=== PATIENT | female | born 1995 | race Caucasian/White ===

== ENCOUNTER → 2016-08-02 | Outpatient (CLI) | payer OTHER ==
--- NOTE | 2016-08-02 12:34 | REP ---
Obstetric sonography: History: Supervision of . Findings: Scanning through the gravid uterus demonstrates a viable single intrauterine gestation in a free-floating lie. The embryonic pole measures 24 mm in crown-rump length. This corresponds to a gestational age estimate of 9 weeks 0 days. heart rate is recorded at 173 beats per minute. There is no evidence of subchorionic hemorrhage. No extrauterine abnormalities observed. No gross anomaly is seen. Impression: Viable single intrauterine gestation at 9 weeks 0 days by crown-rump length. NERI by sonography March 07, 2017. No complication is identified. Signed by Scar Valles MD 08/02/2016 12:26 P
== END ==
LOC: M RAD 11:04
PROVIDERS: ATTEND Nurse Practitioner Family
DX: Z32.01 Encounter for pregnancy test, result positive (principal)

== ENCOUNTER 2019-01-17 16:14 | Inpatient (IN) | payer OTHER ==
[~2019-01-17] VITALS: Ht 177.8 cm; Wt 72.3 kg
[2019-01-17] MEDS ORDERED: TRI-TAB16 PO (16:24)
[2019-01-17] MEDS ORDERED: SERT-141 PO ×2 (16:24)
[2019-01-17] MEDS ORDERED: NS 1,000 ML IV ONE ×2 (16:30→17:45)
[2019-01-17] MEDS ORDERED: ONDANSETRON 4MG/2ML VIAL (J2405) IV ONE (16:45)
[2019-01-17 17:18] LABS: BASO # 0.2 10^3/uL (0.0-0.2); BASO % 0.8 % (0.0-1.0); HEMATOCRIT 42.8 % (36.0-47.0); HEMOGLOBIN 14.8 g/dl (12.0-15.5); LYMPH # 1.4 10^3/uL (1.5-6.5); LYMPH % 7.5 % (24.0-44.0); MEAN CORPUSCULAR HEMOGLOBIN 34.2 pg (27.0-33.0); MEAN CORPUSCULAR HGB CONC 34.6 g/dl (32.0-36.5); MEAN CORPUSCULAR VOLUME 98.8 fl (80.0-96.0); MONO # 1.8 10^3/uL (0.0-0.8); MONO % 9.7 % (0.0-5.0); NEUTROPHILS # 14.3 10^3/uL (1.8-7.7); NEUTROPHILS % 79.4 % (36.0-66.0); PLATELET COUNT, AUTOMATED 353 10^3/uL (150-450); RED BLOOD COUNT 4.33 10^6/uL (4.00-5.40)
[2019-01-17 17:21] LABS: VENOUS BASE EXCESS -29.7 (-2.0-2.0); VENOUS HCO3 3.6 MEQ/L (23.0-27.0); VENOUS O2 SATURATION 82.3 % (60.0-80.0); VENOUS PARTIAL PRESSURE CO2 21.6 mmHg (38.0-50.0); VENOUS PARTIAL PRESSURE O2 47.8 mmHg (30.0-50.0); VENOUS PH 6.839 UNITS (7.330-7.430); VENOUS STANDARD HCO3 5.5 MEQ/L; VENOUS TOTAL CO2 4.3 MEQ/L (24.0-28.0)
[2019-01-17] MEDS ORDERED: INSULIN HUMAN REGULAR 100 UNITS in NS 99 ML IV SCH (17:38)
[2019-01-17 17:42] LABS: BILIRUBIN,DIRECT 0.1 MG/DL (0.0-0.2); BILIRUBIN,TOTAL 0.4 MG/DL (0.2-1.0); MAGNESIUM LEVEL 2.3 MG/DL (1.8-2.4); TOTAL PROTEIN 7.8 GM/DL (6.4-8.2)
[2019-01-17] MEDS ORDERED: diphenhydrAMINE INJ 50MG/ML VIAL (J1200) IV ONE ×2 (17:45→19:30)
[2019-01-17] MEDS ORDERED: KCL 40MEQ in NS 1000ML 1,000 ML IV SCH ×2 (17:45→20:45)
[2019-01-17] MEDS ORDERED: INSULIN IV RATE CHANGE DOCUMENTATION ML/HR XX SCH (17:45)
[2019-01-17] MEDS ORDERED: KCL 10MEQ/100ML SWI (KRUN) 10 MEQ in APPROPRIATE DILUENT 1 EA IV ONE (17:45)
[2019-01-17] MEDS ORDERED: SODIUM BICARBONATE 8.4% INJ 50 ML SYRINGE IV STA (17:55)
[2019-01-17 17:57] LABS: HEMOGLOBIN A1c 12.3 %
[2019-01-17] MEDS ORDERED: POTASSIUM CHLORIDE 10 MEQ SR TABLET PO ONE ×2 (18:00→20:45)
[2019-01-17 18:59] LABS: VENOUS BASE EXCESS -27.8 (-2.0-2.0); VENOUS HCO3 3.3 MEQ/L (23.0-27.0); VENOUS O2 SATURATION 98.7 % (60.0-80.0); VENOUS PARTIAL PRESSURE CO2 16.1 mmHg (38.0-50.0); VENOUS PARTIAL PRESSURE O2 141.5 mmHg (30.0-50.0); VENOUS PH 6.931 UNITS (7.330-7.430); VENOUS STANDARD HCO3 6.2 MEQ/L; VENOUS TOTAL CO2 3.8 MEQ/L (24.0-28.0)
[2019-01-17 19:26] LABS: BLOOD UREA NITROGEN 5 MG/DL (7-18); CALCIUM LEVEL 6.9 MG/DL (8.5-10.1); CARBON DIOXIDE LEVEL 5 MEQ/L (21-32); CHLORIDE LEVEL 116 MEQ/L (98-107); CREATININE FOR GFR 0.82 MG/DL (0.55-1.30); GLOMERULAR FILTRATION RATE > 60.0 (>60); GLUCOSE, FASTING 418 MG/DL (70-100); SODIUM LEVEL 144 MEQ/L (136-145)
[2019-01-17] MEDS ORDERED: methylPREDNISolone INJ 125 MG/2 ML VIAL (J2930) IV ONE (19:30)
[2019-01-17] MEDS ORDERED: diphenhydrAMINE 25 MG CAP PO PRN ×2 (19:45→21:30)
[2019-01-17] MEDS ORDERED: NS 1,000 ML IV SCH (19:45)
[2019-01-17] MEDS ORDERED: SODIUM BICARBONATE 150 MEQ in STERILE WATER LITER BAG 1,000 ML IV SCH (20:00)
[2019-01-17] MEDS ORDERED: ACETAMINOPHEN TAB 650MG DOSE (2X325MG) PO PRN (20:00)
--- NOTE | 2019-01-17 20:08 | HPEPDOC ---
General Date of Admission 01/17/19 Date of Service: Jan 17, 2019 Chief Complaint The patient is a 23-year-old female admitted with a reason for visit of SOB. Source: Patient, Family Exam Limitations: No limitations Timing/Duration: Day(s) (today's) Severity: Severe Associated Symptoms: Nausea, Vomiting, Shortness of breath History of Present Illness 23 years old white female with past medical history of no medical problems and no past surgical history presented to the ED with a chief complaints of shortness of breath. Patient was started. Her symptoms of lethargy, tiredness, weakness, not feeling good since yesterday, which was followed by nausea and vomiting in the evening and subsequently increasing shortness of breath since today and decided to come to ER for further care. In ED, patient did receive a dose of Zofran Zofran and afterward she developed swelling of her tongue that and let which resolved with Benadryl. Patient does not give me any history of any other symptoms such as short adjust his cough, fever, dysuriu. On further interrogation, it was found that patient has been losing weight since last 2 for 5 months and also had increasing thirst and increased micturition since last few months. Patient is being admitted with the diagnosis of DKA to ICU. Home Medications Scheduled Norgestimate-Ethinyl Estradiol (Tri-Linyah Tablet) 1 Each Tablet, 1 TAB PO DAILY, (Reported) Sertraline Hcl (Sertraline HCl) 50 Mg Tablet, 50 MG PO DAILY, (Reported) Allergies Coded Allergies: ondansetron (Verified Allergy, Severe, 01/17/19) Tongue and lip swelling No Known Drug Allergies (Verified Allergy, Unknown, 01/17/19) Past Medical History Medical History There is no past medical history Surgical History There is no past surgical history Family History Significant Family History: Diabetes (grandmother has diabetes type 2) Social History * Smoker: non-smoker Alcohol: Denies Drugs: denies A-FIB/CHADSVASC A-FIB History Current/History of A-Fib/PAF?: No Review of Systems Constitutional: Reports: Other (, swelling of the left lip and left side of tongue) Eyes: Denies: Pain, Vision change, Conjunctivae inflammation, Eyelid inflammation, Redness, Other ENT: Denies: Head Aches, Ear Pain, Dysphagia, Sinus Congestion, Post Nasal Drip, Sore Throat, Epistaxis, Other Symptoms Skin: Denies: Rash, Lesions, Jaundice, Bruising, Itching, Dry, Breakdown, Nail Changes, Other Pulmonary: Reports: Dyspnea; Denies: Cough, Pleuritic Chest Pain, Other Symptoms Cardiovascular: Denies: Chest Pain, Palpitations, Orthopnea, Paroxysmal Noc. Dyspnea, Edema, Lt Headedness, Other Symptoms Gastrointestinal: Reports: Nausea, Vomiting Genitourinary: Reports: Other Symptoms (increased frequency) Hematologic: Denies: Bruising, Bleeding Excessively, Petecchia, Purpura, Enlarged Lymph Nodes, Other Hematologic Endocrine: Reports: Polydipsia, Polyuria Musculoskeletal: Denies: Neck Pain, Back Pain, Shoulder Pain, Arm Pain, Hand Pain, Leg Pain, Foot Pain, Joint Pain, Muscle Pain, Spasms, Other Symptoms Neurological: Denies: Weakness, Numbness, Incoordination, Change in speech, Confusion, Seizures, Other Symptoms Psych: Denies: Mood Normal, Anxiety, Depression, Memory Issues, Thoughts of Self Harm, Anger, Thoughts of Harming Other, Other Psych Physical Examination General Exam: Positive: Alert, Cooperative, Other (. Mild swelling of left lower lip and left side of tongue noted) Eye Exam: Positive: PERRLA, Conjunctiva & lids normal ENT Exam: Positive: Atraumatic, Mucous membr. moist/pink Neck Exam: Negative: Supple, JVD, thyromegaly, +2 carotid pulse wo bruit, Lymphadenopathy, Other Chest Exam: Positive: Clear to auscultation, Normal air movement Heart Exam: Positive: Tachycardic, Normal S1, Normal S2 Telemetry: Positive: Tachycardia Abdomen Exam: Positive: Normal bowel sounds, Soft, Tenderness Extremity Exam: Positive: Normal pulses Skin Exam: Positive: Other skin issue (dry, and increased local temperature) Neuro Exam: Positive: Normal Speech, Strength at 5/5 X4 ext, Sensation Intact Psych Exam: Positive: Oriented x 3 Vital Signs Vital Signs Date Time Temp Pulse Resp B/P (MAP) Pulse Ox O2 Delivery O2 Flow Rate FiO2 01/17/19 19:14 123 100 Room Air 01/17/19 18:30 148/83 (104) 01/17/19 16:15 97.4 34 Laboratory Data Labs 24H Laboratory Tests 2 01/17/19 16:29: Bedside Glucose (Misc Panel) 582*H 01/17/19 16:54: Estimated Mean Plasma Glucose 306H, Hemoglobin A1c 12.3 01/17/19 16:55: Immature Granulocyte % (Auto) 2.6, White Blood Count 18.0H, Red Blood Count 4.33, Hemoglobin 14.8, Hematocrit 42.8, Mean Corpuscular Volume 98.8H, Mean Corpuscular Hemoglobin 34.2H, Mean Corpuscular Hemoglobin Concent 34.6, Red Cell Distribution Width 14.2, Platelet Count 353, Neutrophils (%) (Auto) 79.4H, Lymphocytes (%) (Auto) 7.5L, Monocytes (%) (Auto) 9.7H, Eosinophils (%) (Auto) 0.0, Basophils (%) (Auto) 0.8, Neutrophils # (Auto) 14.3H, Lymphocytes # (Auto) 1.4L, Monocytes # (Auto) 1.8H, Eosinophils # (Auto) 0.0, Basophils # (Auto) 0.2, Nucleated Red Blood Cells % (auto) 0.0, Blood Gas Bicarbonate Standard 5.5, Venous Blood pH 6.839L, Venous Blood Partial Pressure CO2 21.6L, Venous Blood Partial Pressure O2 47.8, Venous Blood Total Carbon Dioxide 4.3L, Venous Blood HCO3 3.6L, Venous Blood Oxygen Saturation 82.3H, Venous Blood Base Excess - 29.7L, Magnesium Level 2.3, Aspartate Amino Transf (AST/SGOT) 7, Alanine Aminotransferase (ALT/SGPT) 16, Alkaline Phosphatase 191H, Total Bilirubin 0.4, Direct Bilirubin 0.1, Total Protein 7.8, Albumin 4.0, Albumin/Globulin Ratio 1.05 01/17/19 16:57: Urine Color STRAW, Urine Appearance CLEAR, Urine pH 5.0, Urine Specific Woodruff 1.022, Urine Protein 1+H, Urine Glucose (UA) 3+H, Urine Ketones 2+H, Urine Blood 2+H, Urine Nitrite NEGATIVE, Urine Bilirubin NEGATIVE, Urine Urobilinogen 0.2, Urine Leukocyte Esterase NEGATIVE, Urine WBC (Auto) 1, Urine RBC (Auto) 1, Urine Hyaline Casts (Auto) 0, Urine Bacteria (Auto) NEGATIVE, Urine Squamous Epithelial Cells 0, Urine Mucus (Auto) SMALL, Urine Sperm (Auto) 01/17/19 17:14: POC Glucose (Misc Panel) 642*H, POC Sodium (Misc Panel) 137, POC Potassium (Misc Panel) 3.1L, POC Chloride (Misc Panel) 109, POC Total CO2 (Misc Panel) 6.0L, POC Blood Urea Nitrogen (Misc Panel 4L, POC Ionized Calcium (Misc Panel) 5.0, POC Creatinine (Misc Panel) 0.5L, POC Hematocrit (Misc Panel) 45.0 01/17/19 18:42: Blood Gas Bicarbonate Standard 6.2, Venous Blood pH 6.931L, Venous Blood Partial Pressure CO2 16.1L, Venous Blood Partial Pressure O2 141.5H, Venous Blood Total Carbon Dioxide 3.8L, Venous Blood HCO3 3.3L, Venous Blood Oxygen Saturation 98.7H, Venous Blood Base Excess -27.8L, Anion Gap 23H, Glomerular Filtration Rate > 60.0, Blood Urea Nitrogen 5L, Creatinine 0.82, Sodium Level 144, Potassium Level 3.0L, Chloride Level 116H, Carbon Dioxide Level 5L, Calcium Level 6.9L CBC/BMP Laboratory Tests 01/17/19 16:55 Red Blood Count 4.33, Mean Corpuscular Volume 98.8 H, Mean Corpuscular Hemoglobin 34.2 H, Mean Corpuscular Hemoglobin Concent 34.6, Red Cell Distribution Width 14.2, Neutrophils (%) (Auto) 79.4 H, Lymphocytes (%) (Auto) 7.5 L, Monocytes (%) (Auto) 9.7 H, Eosinophils (%) (Auto) 0.0, Basophils (%) (Auto) 0.8, Neutrophils # (Auto) 14.3 H, Lymphocytes # (Auto) 1.4 L, Monocytes # (Auto) 1.8 H, Eosinophils # (Auto) 0.0, Basophils # (Auto) 0.2 01/17/19 18:42 Calcium Level 6.9 L Problems (1) DKA (diabetic ketoacidoses) Status: Acute Problem Text: 22 years old white female with no past medical history developed weight loss since last 4-5 months followed by polyuria, polydipsia, and later she developed nausea, vomiting since yesterday and found followed by shortness of breath. On further investigation, patient was found to be within metabolic acidosis with a widened anion gap high blood serum blood sugar and very low pH on arterial blood gas. Patient's respiratory rate is also more than 25 with tachycardia and high white count of 18,000. Patient is an DKA with metabolic acidosis and hypokalemia as well as she also qualifies for sepsis of unknown etiology. Patient most likely has new onset diabetes mellitus type 1, which was previously not diagnosed as hemoglobin A1c is more than 12 Admit patient to ICU for close monitoring Fingerstick blood sugar every one hour BMP and phosphate, and osmolality every 4-6 hours Pt will be started on IV fluid normal saline to 150 mL per hour and will change IV fluids was the blood sugar is less than 150 consistently Pt did receive a potassium supplement of 40 mEq in ED and will follow the repeat BMPs and adjust accordingly Patient will also be started on bicarbonate drip of 150 mEq and 1 L of sterile water to be run at 200 mL per hour 1 L, we will repeat blood gas was the bicarbonate drip is complete Insulin drip has been started and will be titrated according to protocol Will also start patient on IV Levaquin 750 mg IV piggyback every 24 hours after getting blood cultures and urine cultures secondary to sepsis of unknown etiology Regarding her swelling of tongue and lip which is has resolved, but there is some residual swelling on the lip and will most likely causes a Zofran and will call pharmacy to inform from them about the drug allergy. In the meantime, will prescribe patient on Reglan for nausea, vomiting as needed Protonix 40 mg IV piggyback every 24 hours for GI prophylaxis Bilateral SCDs for DVT prophylaxis Bed rest Diet nothing by mouth except meds (2) New onset type 1 diabetes mellitus, uncontrolled Status: Acute Problem Text: Elevated hemoglobin A1c, 12.3 Recently undiagnosed diabetes mellitus, most likely type I Once patient resolved her DKA episode that she can be placed on long-acting insulin and dose adjusted accordingly Dietary business and financial counsel has been requested (3) Hypokalemia Status: Acute Problem Text: Corrected . Potassium level in 4 hours (4) Metabolic acidosis Status: Acute Problem Text: Patient has been started on bicarbonate drip of 150 mEq, she also received sodium bicarbonate 100 mEq as a bolus in ED We will get the repeat ABG again to review the pH was a bicarbonate drip is complete (5) Sepsis Status: Acute Problem Text: Sepsis of unknown etiology. Patient has a elevated heart rate, elevated respiratory rate. No temperature but high WBC count and satisfies the Criteria of sepsis of unknown origin etiology. will order the pro calcitonin levels and lactic acid level now , Urine cultures and blood cultures also has been ordered To start patient on Levaquin 750 mg IV piggyback every 24 hours, first dose now Plan / VTE VTE Prophylaxis Ordered?: Yes MARCOS BRYSON MD Jan 17, 2019 20:08
[2019-01-17 21:19] VITALS: BP 135/72
[2019-01-17] MEDS ORDERED: SODIUM BICARBONATE IV SCH (21:30)
[2019-01-17] MEDS ORDERED: POTASSIUM CHLORIDE IV SCH (21:30)
[2019-01-17] MEDS ORDERED: POTASSIUM CHLORIDE INJ 40 MEQ in NS 0.45% 1,000 ML IV SCH (21:30)
[2019-01-17] MEDS ORDERED: [UNRECOGNIZED DRUG - OTHER] IV SCH (21:30)
[2019-01-17] MEDS: PANTOPRAZOLE 40MG INJ (PROTONIX) (C9113) IV SCH (21:32)
[2019-01-17] MEDS: KCL 10MEQ/100ML SWI (KRUN) 10 MEQ in APPROPRIATE DILUENT 1 EA IV SCH ×2 (21:33→22:50)
[2019-01-17 22:00] VITALS: BP 128/70
[2019-01-17] MEDS: CETIRIZINE (ZyrTEC) 10 MG TAB PO SCH (22:49)
[2019-01-17 23:00] VITALS: BP 116/65
--- NOTE | 2019-01-17 23:28 | CR ---
DATE OF CONSULTATION: 01/17/2019 CHIEF COMPLAINT: Angioedema and diabetic ketoacidosis (DKA). HISTORY OF PRESENT ILLNESS: Ms. Dunaway is a 23-year-old female with a history of depression who presented to the emergency department (ED) with complaints of weakness, shortness of breath, nausea and vomiting. The patient reports that her shortness of breath and nausea and vomiting started early in the day prior to her admission. Prior to this, she had noted some increasing weakness; however, for the past few weeks, as well increasing thirst and urination in the past few months. The patient also reports a weight loss of approximately 50 pounds in the past few months as well. In the emergency department (ED), she was given IV fluid hydration, as well as potassium 40 mg by mouth and 10 mEq IV and she was started on an insulin drip and also given sodium bicarbonate. The patient was also given Zofran for her nausea and she was also complaining of dry lips and had Vaseline jelly placed on her lips. Afterwards, she noticed swelling of her tongue and her lips, but denied any shortness of breath, no wheezing at that time. She was given Benadryl 25 mg with some improvement in the tongue swelling, but then later reported it appeared to have slightly increased. I ordered Solu-Medrol 60 mg IV and an additional 25 mg of Benadryl and after that she feels her tongue swelling has significantly improved. She currently denies any difficulty swallowing, no drooling, no voice change, no wheezing, no chest tightness or shortness of breath. She also reports her nausea has improved and her shortness of breath has improved. PAST MEDICAL/SURGICAL HISTORY: Depression/anxiety. There is no past surgical history. HOME MEDICATIONS: Sertraline, control pill. ALLERGIES: No previous drug allergies reported. Has allergies to cats and other environmental exposures, but denies a previous history of angioedema. FAMILY HISTORY: There is a history of type 2 diabetes in her grandmother. No family history of type 1 diabetes. No history of angioedema in the family and no history of any lung disease. SOCIAL HISTORY: The patient is a nonsmoker. Denies any alcohol use or drug use. PHYSICAL EXAM: Temperature 97.8, heart rate 116, respirations 24, blood pressure 141/83, oxygen saturation 100% on room air. General: The patient is a thin female who is lying in the stretcher in no acute distress. Appears slightly drowsy, but is awake and alert and responding to questions appropriate. She is not using any accessory muscles for respirations currently. HEENT: Normocephalic, atraumatic. Pupils are equal and reactive to light bilaterally. Neck is supple. There is no palpable adenopathy. There is no tenderness to palpation in her neck as well. Mucous membranes are moist. Her tongue does not appear significantly swollen. There does not appear to be swelling in her uvula. Her lips are swollen still more on the left side than the right. Cardiovascular: Tachycardic, regular rhythm. Normal S1-S2. No murmurs appreciated. Pulmonary: Clear to auscultation bilaterally. No wheezing, rales or rhonchi. Abdomen is soft, nondistended, nontender. Normal bowel sounds. Lower extremities: There is no lower extremity edema noted bilaterally. LABORATORY DATA: WBC 18.0, hemoglobin 14.8, platelets 353. Chemistry: Sodium is 144, potassium initially on the point of care chemistry was 3.1, repeat potassium 3.0 after repletion, chloride 169, bicarb of 5, BUN 5, creatinine 0.82, anion gap 23, glucose 418, magnesium was 2.3, AST, ALT within normal limits. Bilirubin normal, alkaline phosphatase 191, albumin is 4.0, hemoglobin A1c is 12.3 Venous blood gas (VBG) on admission pH 6.839, pCO2 of 21.6, pO2 of 47.8, repeat Venous blood gas (VBG) pH 6.931, pCO2 of 16.1, pO2 of 141.5. Urinalysis positive for ketones, blood and glucose and protein. Negative leukocyte esterase, negative nitrates and negative bacteria. Chest x-ray on admission showed no focal opacities or infiltrates. ASSESSMENT/PLAN: Ms. Dunaway is a 23-year-old female with a past medical history of depression/anxiety who presented with weakness, shortness of breath, nausea and vomiting. The patient was found to be in diabetic ketoacidosis (DKA), likely due to history of untreated type 1 diabetes. The patient had significant acidosis contributing to her shortness of breath. She was also noted to be significantly hypokalemic. During her emergency department (ED) stay, she also had complaints of nausea, was given Zofran and developed angioedema of her lips and her tongue. She was given Benadryl and Solu-Medrol with improvement in the angioedema. She does not have any evidence of airway obstruction at this time and there is also no evidence of anaphylaxis. 1. Diabetic ketoacidosis (DKA) likely in the setting of untreated type 1 diabetes. She did have increased leukocytosis, but is afebrile and her urinalysis is negative, chest x-ray is negative and she has no localizing symptoms to suggest an infectious etiology. - Would to monitor the patient off of antibiotics. The patient was on broad-spectrum antibiotics, although there is less likely a suspicion for any acute infectious etiology. However, leukocytosis is likely reactive. Would followup her repeat white blood count (WBC) and follow up the results of her blood cultures. Would check a procalcitonin to discontinue antibiotics and would recommend to monitor off of antibiotics. - In terms of her diabetic ketoacidosis (DKA), the patient was on insulin drip in the emergency department (ED); however, her potassium repeat was 3.0. Therefore, would hold the insulin drip until her potassium has been repleted and the potassium is above 3.3. Therefore, will give her 40 mEq by mouth potassium, as well as 10 mEq IV x3. Will also change her fluids from normal saline to half normal saline with 40 mEq of potassium running at 250 mL an hour. Will follow up a repeat potassium after she receives the repletion; and if the potassium is of above 3.3, can restart the insulin drip at that time. - In terms of her acidosis, the patient's last the venous blood gas (VBG) shows a pH still of 6.9. The patient was receiving 150 mEq of sodium bicarbonate, as well as normal saline and she was also becoming hyperchloremic on her chemistry, which would be contributing to her acidosis. Therefore, her fluids have been adjusted and will discontinue the bicarbonate drip and instead give her bicarbonate repletion with 100meq sodium bicarb with potassium chloride over 2 hours. Will follow up a repeat venous blood gas (VBG); and if her pH is still less than 7, will give her another run of sodium bicarb. - The patient's insulin drip is on hold now given her hypokalemia; but once her potassium has been repleted to above 3.3, would restart her insulin drip and continue until her anion gap has closed x2 and her bicarb is above 15. She will need fingerstick glucose every one hour while on the insulin drip. - if her FSG is less than 200 would change fluids to D5W or D5 1/2NS depending on her sodium. - She will also need chemistries every 4 hours, as well as monitoring her venous blood gases (VBGs) - Will monitor her electrolytes and replete as needed. - When the patient is ready for to be transitioned to subcutaneous insulin after her anion gap has remained closed on two subsequent chemistries and she is able to tolerate by mouth, she will need overlap of the insulin drip after receiving this long-acting insulin subcutaneous for 2 hours before stopping the drip. 2. Angioedema likely an allergic reaction secondary to Zofran. She did also have Vaseline jelly placed on her lips, but she had previously used Vaseline jelly in the past without any ill effects. - The patient is status post Benadryl 25 mg x2 and Solu-Medrol 60 mg IV. - Will continue with an antihistamine with cetirizine 10 mg twice a day. - Continue with steroids with prednisone 40 mg daily - The patient does not have any evidence of airway compromise currently or anaphylaxis. If she has worsening angioedema or signs to suggest anaphylaxis, would give epinephrine intramuscular (IM) at that time. - would continue to monitor the patient closely for any signs of respiratory distress or airway compromise. She does not have any family history of angioedema and no prior history of hives or tongue or lip swelling to suggest a hereditary deficiency. 3. Deep vein thrombosis (DVT) prophylaxis. 4. Gastrointestinal (GI) prophylaxis. 5. Full code. Total critical care time spent not including any procedures approximately 1 hour and 20 minutes. MTDD
[2019-01-18] VITALS (15 sets, daily range): BP systolic 96–129; BP diastolic 53–76
[2019-01-18 00:06] LABS: BLOOD UREA NITROGEN 5 MG/DL (7-18); CALCIUM LEVEL 7.8 MG/DL (8.5-10.1); CARBON DIOXIDE LEVEL 6 MEQ/L (21-32); CHLORIDE LEVEL 123 MEQ/L (98-107); CREATININE FOR GFR 0.79 MG/DL (0.55-1.30); GLOMERULAR FILTRATION RATE > 60.0 (>60); GLUCOSE, FASTING 220 MG/DL (70-100); MAGNESIUM LEVEL 1.9 MG/DL (1.8-2.4); PHOSPHORUS LEVEL 0.5 MG/DL (2.5-4.9); POTASSIUM SERUM 3.4 MEQ/L (3.5-5.1); SODIUM LEVEL 148 MEQ/L (136-145)
[2019-01-18] MEDS: KCL 10MEQ/100ML SWI (KRUN) 10 MEQ in APPROPRIATE DILUENT 1 EA IV SCH ×3 (00:17→04:11)
[2019-01-18] MEDS: LevoFLOXacin IV 750 MG in APPROPRIATE DILUENT 1 EA IV SCH ×2 (00:56→20:44)
[2019-01-18] MEDS: INSULIN HUMAN REGULAR 100 UNITS in NS 99 ML IV SCH ×2 (01:07→15:20)
[2019-01-18 01:45] LABS: VENOUS BASE EXCESS -25.9 (-2.0-2.0); VENOUS HCO3 3.5 MEQ/L (23.0-27.0); VENOUS O2 SATURATION 87.1 % (60.0-80.0); VENOUS PARTIAL PRESSURE CO2 14.2 mmHg (38.0-50.0); VENOUS PARTIAL PRESSURE O2 47.9 mmHg (30.0-50.0); VENOUS PH 7.008 UNITS (7.330-7.430); VENOUS STANDARD HCO3 6.9 MEQ/L; VENOUS TOTAL CO2 3.9 MEQ/L (24.0-28.0)
[2019-01-18] MEDS: INSULIN IV RATE CHANGE DOCUMENTATION ML/HR XX SCH ×12 (02:08→23:22)
[2019-01-18 05:41] LABS: VENOUS BASE EXCESS -19.1 (-2.0-2.0); VENOUS HCO3 6.9 MEQ/L (23.0-27.0); VENOUS O2 SATURATION 99.1 % (60.0-80.0); VENOUS PARTIAL PRESSURE CO2 18.7 mmHg (38.0-50.0); VENOUS PARTIAL PRESSURE O2 193.5 mmHg (30.0-50.0); VENOUS PH 7.188 UNITS (7.330-7.430); VENOUS STANDARD HCO3 10.6 MEQ/L; VENOUS TOTAL CO2 7.5 MEQ/L (24.0-28.0)
[2019-01-18 06:01] LABS: OSMOLALITY SERUM 308 MOSM/KG (275-295)
[2019-01-18 06:06] LABS: BLOOD UREA NITROGEN 5 MG/DL (7-18); CALCIUM LEVEL 8.4 MG/DL (8.5-10.1); CARBON DIOXIDE LEVEL 9 MEQ/L (21-32); CHLORIDE LEVEL 128 MEQ/L (98-107); CREATININE FOR GFR 0.74 MG/DL (0.55-1.30); GLOMERULAR FILTRATION RATE > 60.0 (>60); GLUCOSE, FASTING 145 MG/DL (70-100); MAGNESIUM LEVEL 2.1 MG/DL (1.8-2.4); PHOSPHORUS LEVEL 0.2 MG/DL (2.5-4.9); POTASSIUM SERUM 2.8 MEQ/L (3.5-5.1); SODIUM LEVEL 151 MEQ/L (136-145)
[2019-01-18] MEDS ORDERED: POTASSIUM CHLORIDE 10 MEQ SR TABLET PO ONE ×2 (06:30→14:15)
[2019-01-18] MEDS ORDERED: KCL 40MEQ IN D5/0.45NS 1000ML 1,000 ML IV SCH (06:30)
[2019-01-18] MEDS ORDERED: POTASSIUM PHOSPHATE INJ 30 MMOL in D5W 500 ML IV ONE ×2 (07:00→22:00)
[2019-01-18 09:24] LABS: BASO # 0.1 10^3/uL (0.0-0.2); BASO % 0.4 % (0.0-1.0); LYMPH % 12.4 % (24.0-44.0); MEAN CORPUSCULAR HEMOGLOBIN 33.2 pg (27.0-33.0); MEAN CORPUSCULAR HGB CONC 35.3 g/dl (32.0-36.5); MONO % 17.9 % (0.0-5.0); NEUTROPHILS # 10.6 10^3/uL (1.8-7.7); NEUTROPHILS % 67.6 % (36.0-66.0); PLATELET COUNT, AUTOMATED 264 10^3/uL (150-450); RED BLOOD COUNT 3.83 10^6/uL (4.00-5.40); WHITE BLOOD COUNT 15.7 10^3/uL (4.0-10.0)
[2019-01-18 09:30] LABS: BLOOD UREA NITROGEN 6 MG/DL (7-18); CALCIUM LEVEL 8.7 MG/DL (8.5-10.1); CARBON DIOXIDE LEVEL 5 MEQ/L (21-32); CHLORIDE LEVEL 124 MEQ/L (98-107); CREATININE FOR GFR 0.84 MG/DL (0.55-1.30); GLOMERULAR FILTRATION RATE > 60.0 (>60); GLUCOSE, FASTING 230 MG/DL (70-100); PHOSPHORUS LEVEL 0.7 MG/DL (2.5-4.9); POTASSIUM SERUM 3.4 MEQ/L (3.5-5.1); SODIUM LEVEL 147 MEQ/L (136-145)
[2019-01-18 09:48] LABS: MONO # 2.8 10^3/uL (0.0-0.8)
[2019-01-18 09:49] LABS: HEMOGLOBIN 12.7 g/dl (12.0-15.5)
[2019-01-18] MEDS ORDERED: D5W 1,000 ML IV SCH ×2 (10:00→14:16)
[2019-01-18] MEDS: CETIRIZINE (ZyrTEC) 10 MG TAB PO SCH ×2 (10:04→20:08)
[2019-01-18] MEDS: predniSONE 20 MG TAB PO SCH (10:05)
[2019-01-18 11:46] LABS: ACETONE/KETONE 37.62 MG/DL (<2.81)
[2019-01-18] MEDS ORDERED: KCL 20MEQ IN D5W 1000ML 1,000 ML IV SCH (12:00)
[2019-01-18 13:03] LABS: HEMATOCRIT 33.2 % (36.0-47.0); HEMOGLOBIN 11.9 g/dl (12.0-15.5); MEAN CORPUSCULAR HEMOGLOBIN 33.8 pg (27.0-33.0); MEAN CORPUSCULAR HGB CONC 35.8 g/dl (32.0-36.5); MEAN CORPUSCULAR VOLUME 94.3 fl (80.0-96.0); PLATELET COUNT, AUTOMATED 223 10^3/uL (150-450); RED BLOOD COUNT 3.52 10^6/uL (4.00-5.40); WHITE BLOOD COUNT 13.3 10^3/uL (4.0-10.0)
[2019-01-18 13:24] LABS: BLOOD UREA NITROGEN 5 MG/DL (7-18); CARBON DIOXIDE LEVEL 8 MEQ/L (21-32); CHLORIDE LEVEL 121 MEQ/L (98-107); CREATININE FOR GFR 0.79 MG/DL (0.55-1.30); GLOMERULAR FILTRATION RATE > 60.0 (>60); GLUCOSE, FASTING 227 MG/DL (70-100); MAGNESIUM LEVEL 1.9 MG/DL (1.8-2.4); PHOSPHORUS LEVEL 0.5 MG/DL (2.5-4.9); SODIUM LEVEL 144 MEQ/L (136-145)
[2019-01-18] MEDS ORDERED: MAG SULF 1GM/100ML (MAG RUN) 1 GM in APPROPRIATE DILUENT 1 EA IV ONE ×2 (14:00→22:00)
[2019-01-18] MEDS: POTASSIUM CHLORIDE 10 MEQ SR TABLET PO SCH ×2 (14:04→15:20)
[2019-01-18] MEDS ORDERED: SODIUM BICARBONATE 150 MEQ in D5W 1,000 ML IV SCH (14:15)
--- NOTE | 2019-01-18 14:28 | IPNPDOC ---
Date Seen The patient was seen on 01/18/19. Progress Note SUBJECTIVE: Pt c/o fatigue, generalized weakness, but denies abdominal pain, vomiting. pt had nausea given zofran and subsequently developed angioedema s/p prednisone and benadryl. pt requesting liquids and feeling very thirsty. At home, she admits to weight loss, but denied polyuria polydipsia. OBJECTIVE: Physical Examination General Exam: Positive: Alert, Cooperative, Other (. Mild swelling of left lower lip and left side of tongue noted) Eye Exam: Positive: PERRLA, Conjunctiva & lids normal ENT Exam: Positive: Atraumatic, Mucous membr. moist/pink Neck Exam: Negative: Supple, JVD, thyromegaly, +2 carotid pulse wo bruit, Lymphadenopathy, Other Chest Exam: Positive: Clear to auscultation, Normal air movement Heart Exam: Positive: Tachycardic, Normal S1, Normal S2 Telemetry: Positive: Tachycardia Abdomen Exam: Positive: Normal bowel sounds, Soft, Tenderness Extremity Exam: Positive: Normal pulses Skin Exam: Positive: Other skin issue (dry, and increased local temperature) Neuro Exam: Positive: Normal Speech, Strength at 5/5 X4 ext, Sensation Intact Psych Exam: Positive: Oriented x 3 ADMISSION LABORATORY DATA: Laboratory Data Labs 24H Laboratory Tests 2 01/17/19 16:29: Bedside Glucose (Misc Panel) 582*H 01/17/19 16:54: Estimated Mean Plasma Glucose 306H, Hemoglobin A1c 12.3 01/17/19 16:55: Immature Granulocyte % (Auto) 2.6, White Blood Count 18.0H, Red Blood Count 4.33, Hemoglobin 14.8, Hematocrit 42.8, Mean Corpuscular Volume 98.8H, Mean Corpuscular Hemoglobin 34.2H, Mean Corpuscular Hemoglobin Concent 34.6, Red Cell Distribution Width 14.2, Platelet Count 353, Neutrophils (%) (Auto) 79.4H, Lymphocytes (%) (Auto) 7.5L, Monocytes (%) (Auto) 9.7H, Eosinophils (%) (Auto) 0.0, Basophils (%) (Auto) 0.8, Neutrophils # (Auto) 14.3H, Lymphocytes # (Auto) 1.4L, Monocytes # (Auto) 1.8H, Eosinophils # (Auto) 0.0, Basophils # (Auto) 0.2, Nucleated Red Blood Cells % (auto) 0.0, Blood Gas Bicarbonate Standard 5.5, Venous Blood pH 6.839L, Venous Blood Partial Pressure CO2 21.6L, Venous Blood Partial Pressure O2 47.8, Venous Blood Total Carbon Dioxide 4.3L, Venous Blood HCO3 3.6L, Venous Blood Oxygen Saturation 82.3H, Venous Blood Base Excess - 29.7L, Magnesium Level 2.3, Aspartate Amino Transf (AST/SGOT) 7, Alanine Aminotransferase (ALT/SGPT) 16, Alkaline Phosphatase 191H, Total Bilirubin 0.4, Direct Bilirubin 0.1, Total Protein 7.8, Albumin 4.0, Albumin/Globulin Ratio 1.05 01/17/19 16:57: Urine Color STRAW, Urine Appearance CLEAR, Urine pH 5.0, Urine Specific [place] 1.022, Urine Protein 1+H, Urine Glucose (UA) 3+H, Urine Ketones 2+H, Urine Blood 2+H, Urine Nitrite NEGATIVE, Urine Bilirubin NEGATIVE, Urine Urobilinogen 0.2, Urine Leukocyte Esterase NEGATIVE, Urine WBC (Auto) 1, Urine RBC (Auto) 1, Urine Hyaline Casts (Auto) 0, Urine Bacteria (Auto) NEGATIVE, Urine Squamous Epithelial Cells 0, Urine Mucus (Auto) SMALL, Urine Sperm (Auto) 01/17/19 17:14: POC Glucose (Misc Panel) 642*H, POC Sodium (Misc Panel) 137, POC Potassium (Misc Panel) 3.1L, POC Chloride (Misc Panel) 109, POC Total CO2 (Misc Panel) 6.0L, POC Blood Urea Nitrogen (Misc Panel 4L, POC Ionized Calcium (Misc Panel) 5.0, POC Creatinine (Misc Panel) 0.5L, POC Hematocrit (Misc Panel) 45.0 01/17/19 18:42: Blood Gas Bicarbonate Standard 6.2, Venous Blood pH 6.931L, Venous Blood Partial Pressure CO2 16.1L, Venous Blood Partial Pressure O2 141.5H, Venous Blood Total Carbon Dioxide 3.8L, Venous Blood HCO3 3.3L, Venous Blood Oxygen Saturation 98.7H, Venous Blood Base Excess -27.8L, Anion Gap 23H, Glomerular Filtration Rate > 60.0, Blood Urea Nitrogen 5L, Creatinine 0.82, Sodium Level 144, Potassium Level 3.0L, Chloride Level 116H, Carbon Dioxide Level 5L, Calcium Level 6.9L CBC/BMP Laboratory Tests 01/17/19 16:55 Red Blood Count 4.33, Mean Corpuscular Volume 98.8 H, Mean Corpuscular Hemoglobin 34.2 H, Mean Corpuscular Hemoglobin Concent 34.6, Red Cell Distribution Width 14.2, Neutrophils (%) (Auto) 79.4 H, Lymphocytes (%) (Auto) 7.5 L, Monocytes (%) (Auto) 9.7 H, Eosinophils (%) (Auto) 0.0, Basophils (%) (Auto) 0.8, Neutrophils # (Auto) 14.3 H, Lymphocytes # (Auto) 1.4 L, Monocytes # (Auto) 1.8 H, Eosinophils # (Auto) 0.0, Basophils # (Auto) 0.2 01/17/19 18:42 Calcium Level 6.9 LABORATORY DATA, IMAGING STUDIES, MICROBIOLOGY: PLS SEE BELOW ASSESSMENT AND PLAN: 23 years old white female with past medical history of no medical problems and no past surgical history presented to the ED with a chief complaints of shortness of breath. Patient was started. Her symptoms of lethargy, tiredness, weakness, not feeling good since yesterday, which was followed by nausea and vomiting in the evening and subsequently increasing shortness of breath since today and decided to come to ER for further care. In ED, patient did receive a dose of Zofran Zofran and afterward she developed swelling of her tongue that and let which resolved with Benadryl. Patient does not give me any history of any other symptoms such as short adjust his cough, fever, dysuriu. On further interrogation, it was found that patient has been losing weight since last 2 for 5 months and also had increasing thirst and increased micturition since last few months. Patient was admitted with the diagnosis of DKA to ICU. Diabetic Ketoacidosis admitted to ICU until anion gap has closed on insulin iv gtt, ivfluids, q1hrly fingersticks, serial mg, phos, potassium monitoring, empiric levaquin. will need outpt referral to pill packer by pcp after hospital discharge. New onset DM1 admitted to ICU until anion gap has closed on insulin iv gtt, ivfluids, q1hrly fingersticks, serial mg, phos, potassium monitoring, empiric levaquin. will need outpt referral to pill packer by pcp after hospital discharge. SIRS on ivfluids , empiric levaquin. urine neg. cxr neg. Acute Metabolic Acidosis s/p bicarb resolving with treatment of DKA serial mp Hypokalemia supplemented Hypomagnesemia supplemented Hypophosphatemia supplemented Reaction to Ondasetron on prednisone,benadryl Plan / VTE VTE Prophylaxis Ordered?: Yes VS, I&O, 24H, Fishbone Vital Signs/I&O Vital Signs Date Time Temp Pulse Resp B/P (MAP) Pulse Ox O2 Delivery O2 Flow Rate FiO2 01/18/19 08:00 99.0 120 18 111/53 (72) 100 01/17/19 20:07 Room Air I&O- Last 24 Hours up to 6 AM 01/18/19 06:00 Intake Total 4182 ml Output Total 2650 ml Balance 1532 ml Laboratory Data 24H LABS Laboratory Tests 2 01/17/19 16:29: Bedside Glucose (Misc Panel) 582*H 01/17/19 16:54: Estimated Mean Plasma Glucose 306H, Hemoglobin A1c 12.3 01/17/19 16:55: Immature Granulocyte % (Auto) 2.6, White Blood Count 18.0H, Red Blood Count 4.33, Hemoglobin 14.8, Hematocrit 42.8, Mean Corpuscular Volume 98.8H, Mean Corpuscular Hemoglobin 34.2H, Mean Corpuscular Hemoglobin Concent 34.6, Red Cell Distribution Width 14.2, Platelet Count 353, Neutrophils (%) (Auto) 79.4H, Lymphocytes (%) (Auto) 7.5L, Monocytes (%) (Auto) 9.7H, Eosinophils (%) (Auto) 0.0, Basophils (%) (Auto) 0.8, Neutrophils # (Auto) 14.3H, Lymphocytes # (Auto) 1.4L, Monocytes # (Auto) 1.8H, Eosinophils # (Auto) 0.0, Basophils # (Auto) 0.2, Nucleated Red Blood Cells % (auto) 0.0, Blood Gas Bicarbonate Standard 5.5, Venous Blood pH 6.839L, Venous Blood Partial Pressure CO2 21.6L, Venous Blood Partial Pressure O2 47.8, Venous Blood Total Carbon Dioxide 4.3L, Venous Blood HCO3 3.6L, Venous Blood Oxygen Saturation 82.3H, Venous Blood Base Excess - 29.7L, Magnesium Level 2.3, Aspartate Amino Transf (AST/SGOT) 7, Alanine Ami notransferase (ALT/SGPT) 16, Alkaline Phosphatase 191H, Total Bilirubin 0.4, Direct Bilirubin 0.1, Total Protein 7.8, Albumin 4.0, Albumin/Globulin Ratio 1.05 01/17/19 16:57: Urine Color STRAW, Urine Appearance CLEAR, Urine pH 5.0, Urine Specific [place] 1.022, Urine Protein 1+H, Urine Glucose (UA) 3+H, Urine Ketones 2+H, Urine Blood 2+H, Urine Nitrite NEGATIVE, Urine Bilirubin NEGATIVE, Urine Urobilinogen 0.2, Urine Leukocyte Esterase NEGATIVE, Urine WBC (Auto) 1, Urine RBC (Auto) 1, Urine Hyaline Casts (Auto) 0, Urine Bacteria (Auto) NEGATIVE, Urine Squamous Epithelial Cells 0, Urine Mucus (Auto) SMALL, Urine Sperm (Auto) 01/17/19 17:14: POC Glucose (Misc Panel) 642*H, POC Sodium (Misc Panel) 137, POC Potassium (Misc Panel) 3.1L, POC Chloride (Misc Panel) 109, POC Total CO2 (Misc Panel) 6.0L, POC Blood Urea Nitrogen (Misc Panel 4L, POC Ionized Calcium (Misc Panel) 5.0, POC Creatinine (Misc Panel) 0.5L, POC Hematocrit (Misc Panel) 45.0 01/17/19 18:42: Blood Gas Bicarbonate Standard 6.2, Venous Blood pH 6.931L, Venous Blood Partial Pressure CO2 16.1L, Venous Blood Partial Pressure O2 141.5H, Venous Blood Total Carbon Dioxide 3.8L, Venous Blood HCO3 3.3L, Venous Blood Oxygen Saturation 98.7H, Venous Blood Base Excess -27.8L, Anion Gap 23H, Glomerular Filtration Rate > 60.0, Blood Urea Nitrogen 5L, Creatinine 0.82, Sodium Level 144, Potassium Level 3.0L, Chloride Level 116H, Carbon Dioxide Level 5L, Calcium Level 6.9L, Magnesium Level 2.0 01/17/19 18:49: Bedside Glucose (Misc Panel) 418H 01/17/19 19:52: Bedside Glucose (Misc Panel) 299H 01/17/19 20:46: Lactic Acid Level 2.0 01/17/19 20:57: Bedside Glucose (Misc Panel) 244H 01/17/19 22:13: Bedside Glucose (Misc Panel) 205H 01/17/19 22:58: Bedside Glucose (Misc Panel) 223H 01/17/19 23:38: Anion Gap 19H, Glomerular Filtration Rate > 60.0, Blood Urea Nitrogen 5L, Creatinine 0.79, Sodium Level 148H, Potassium Level 3.4L, Chloride Level 123H, Carbon Dioxide Level 6L, Calcium Level 7.8L, Phosphorus Level 0.5L, Magnesium Level 1.9 01/18/19 00:15: Bedside Glucose (Misc Panel) 228H 01/18/19 01:02: Bedside Glucose (Misc Panel) 245H 01/18/19 01:35: Blood Gas Bicarbonate Standard 6.9, Venous Blood pH 7.008L, Venous Blood Partial Pressure CO2 14.2L, Venous Blood Partial Pressure O2 47.9, Venous Blood Total Carbon Dioxide 3.9L, Venous Blood HCO3 3.5L, Venous Blood Oxygen Saturation 87.1H, Venous Blood Base Excess -25.9L 01/18/19 02:06: Bedside Glucose (Misc Panel) 273H 01/18/19 02:54: Bedside Glucose (Misc Panel) 246H 01/18/19 04:09: Bedside Glucose (Misc Panel) 195H 01/18/19 05:08: Bedside Glucose (Misc Panel) 155H 01/18/19 05:31: Blood Gas Puncture Site UNKNOWN, Blood Gas Bicarbonate Standard 10.6, Venous Blood pH 7.188L, Venous Blood Partial Pressure CO2 18.7L, Venous Blood Partial Pressure O2 193.5H, Venous Blood Total Carbon Dioxide 7.5L, Venous Blood HCO3 6.9L, Venous Blood Oxygen Saturation 99.1H, Venous Blood Base Excess -19.1L, Anion Gap 14, Glomerular Filtration Rate > 60.0, Osmolality 308H, Blood Urea Nitrogen 5L, Creatinine 0.74, Sodium Level 151H, Potassium Level 2.8*L, Chloride Level 128H, Carbon Dioxide Level 9L, Calcium Level 8.4L, Phosphorus Level 0.2#L, Magnesium Level 2.1, B-Hydroxybutyrate 37.62H 01/18/19 06:04: Bedside Glucose (Misc Panel) 130H 01/18/19 07:03: Bedside Glucose (Misc Panel) 137H 01/18/19 08:10: Bedside Glucose (Misc Panel) 207H 01/18/19 08:56: Anion Gap 18H, Glomerular Filtration Rate > 60.0, Blood Urea Nitrogen 6L, Crea tinine 0.84, Sodium Level 147H, Potassium Level 3.4#L, Chloride Level 124H, Carbon Dioxide Level 5L, Calcium Level 8.7, Phosphorus Level 0.7#L, Magnesium Level 2.0 01/18/19 09:02: Bedside Glucose (Misc Panel) 239H 01/18/19 09:14: Immature Granulocyte % (Auto) 1.7, White Blood Count 15.7H, Red Blood Count 3.83L, Hemoglobin 12.7#, Hematocrit 36.0, Mean Corpuscular Volume 94.0, Mean Corpuscular Hemoglobin 33.2H, Mean Corpuscular Hemoglobin Concent 35.3, Red Cell Distribution Width 14.4, Platelet Count 264, Neutrophils (%) (Auto) 67.6H, Lymphocytes (%) (Auto) 12.4L, Monocytes (%) (Auto) 17.9H, Eosinophils (%) (Auto) 0.0, Basophils (%) (Auto) 0.4, Neutrophils # (Auto) 10.6H, Lymphocytes # (Auto) 2.0, Monocytes # (Auto) 2.8H, Eosinophils # (Auto) 0.0, Basophils # (Auto) 0.1, Nucleated Red Blood Cells % (auto) 0.0 01/18/19 10:09: Bedside Glucose (Misc Panel) 258H 01/18/19 11:04: Bedside Glucose (Misc Panel) 271H 01/18/19 12:03: Bedside Glucose (Misc Panel) 254H 01/18/19 12:52: Nucleated Red Blood Cells % (auto) 0.0, Anion Gap 15, Glomerular Filtration Rate > 60.0, Blood Urea Nitrogen 5L, Creatinine 0.79, Sodium Level 144, Potassium Level 3.0L, Chloride Level 121H, Carbon Dioxide Level 8L, Calcium Level 8.0L, Phosphorus Level 0.5#L, Magnesium Level 1.9 01/18/19 13:20: Bedside Glucose (Misc Panel) 232H CBC/BMP Laboratory Tests 01/17/19 16:55 Red Blood Count 4.33, Mean Corpuscular Volume 98.8 H, Mean Corpuscular Hemoglobin 34.2 H, Mean Corpuscular Hemoglobin Concent 34.6, Red Cell Distribution Width 14.2, Neutrophils (%) (Auto) 79.4 H, Lymphocytes (%) (Auto) 7.5 L, Monocytes (%) (Auto) 9.7 H, Eosinophils (%) (Auto) 0.0, Basophils (%) (Auto) 0.8, Neutrophils # (Auto) 14.3 H, Lymphocytes # (Auto) 1.4 L, Monocytes # (Auto) 1.8 H, Eosinophils # (Auto) 0.0, Basophils # (Auto) 0.2 01/17/19 18:42 Calcium Level 6.9 L 01/17/19 23:38 Calcium Level 7.8 L 01/18/19 05:31 Calcium Level 8.4 L 01/18/19 08:56 Calcium Level 8.7 01/18/19 09:14 Red Blood Count 3.83 L, Mean Corpuscular Volume 94.0, Mean Corpuscular H emoglobin 33.2 H, Mean Corpuscular Hemoglobin Concent 35.3, Red Cell Distribution Width 14.4, Neutrophils (%) (Auto) 67.6 H, Lymphocytes (%) (Auto) 12.4 L, Monocytes (%) (Auto) 17.9 H, Eosinophils (%) (Auto) 0.0, Basophils (%) (Auto) 0.4, Neutrophils # (Auto) 10.6 H, Lymphocytes # (Auto) 2.0, Monocytes # (Auto) 2.8 H, Eosinophils # (Auto) 0.0, Basophils # (Auto) 0.1 01/18/19 12:52 Calcium Level 8.0 L, Red Blood Count 3.52 L, Mean Corpuscular Volume 94.3, Mean Corpuscular Hemoglobin 33.8 H, Mean Corpuscular Hemoglobin Concent 35.8, Red Cell Distribution Width 14.3 Microbiology Microbiology 01/17/19 Blood Culture, Received Pending JV AL MD Jan 18, 2019 14:10
[2019-01-18] MEDS: POTASSIUM CHLORIDE INJ 40 MEQ in D5W 1,000 ML IV SCH ×2 (15:20→21:00)
[2019-01-18] MEDS ORDERED: POTASSIUM CHLORIDE 10% LIQ 20 MEQ/15 ML UDC PO ONE ×3 (16:00→21:30)
[2019-01-18] MEDS ORDERED: SODIUM BICARBONATE 325 MG TAB PO SCH (17:00)
[2019-01-18 18:05] LABS: BLOOD UREA NITROGEN 4 MG/DL (7-18); CARBON DIOXIDE LEVEL 5 MEQ/L (21-32); CHLORIDE LEVEL 118 MEQ/L (98-107); CREATININE FOR GFR 0.83 MG/DL (0.55-1.30); GLOMERULAR FILTRATION RATE > 60.0 (>60); GLUCOSE, FASTING 250 MG/DL (70-100); MAGNESIUM LEVEL 2.2 MG/DL (1.8-2.4); PHOSPHORUS LEVEL 0.6 MG/DL (2.5-4.9); POTASSIUM SERUM 3.7 MEQ/L (3.5-5.1); SODIUM LEVEL 142 MEQ/L (136-145)
[2019-01-18 18:28] LABS: VENOUS BASE EXCESS -18.5 (-2.0-2.0); VENOUS HCO3 6.8 MEQ/L (23.0-27.0); VENOUS O2 SATURATION 99.4 % (60.0-80.0); VENOUS PARTIAL PRESSURE CO2 16.7 mmHg (38.0-50.0); VENOUS PARTIAL PRESSURE O2 205.2 mmHg (30.0-50.0); VENOUS PH 7.227 UNITS (7.330-7.430); VENOUS STANDARD HCO3 10.8 MEQ/L; VENOUS TOTAL CO2 7.3 MEQ/L (24.0-28.0)
[2019-01-18] MEDS: PANTOPRAZOLE 40MG INJ (PROTONIX) (C9113) IV SCH (20:08)
[2019-01-18 21:15] LABS: BLOOD UREA NITROGEN 4 MG/DL (7-18); CALCIUM LEVEL 8.6 MG/DL (8.5-10.1); CARBON DIOXIDE LEVEL 13 MEQ/L (21-32); CHLORIDE LEVEL 118 MEQ/L (98-107); CREATININE FOR GFR 0.74 MG/DL (0.55-1.30); GLOMERULAR FILTRATION RATE > 60.0 (>60); GLUCOSE, FASTING 187 MG/DL (70-100); MAGNESIUM LEVEL 1.9 MG/DL (1.8-2.4); PHOSPHORUS LEVEL 0.3 MG/DL (2.5-4.9); POTASSIUM SERUM 3.2 MEQ/L (3.5-5.1); SODIUM LEVEL 141 MEQ/L (136-145)
--- NOTE | 2019-01-18 21:15 | ECGEPIP ---
[facility] - ED Test Date: 2019-01-17 Pat Name: LEONARDO MCLAUGHLIN Department: Room: - Gender: Female Social Welfare Administrator: MARGARETTE : 1995 Requested By: FRAN PECK Order Number: [id number] Reading MD: Dalia Dennison Measurements Intervals [place] Rate: 118 P: 73 CO: 166 QRS: 71 QRSD: 93 T: 73 QT: 431 QTc: 605 Interpretive Statements SINUS TACHYCARDIA SEPTAL MYOCARDIAL INFARCTION, PROBABLY OLD NSTTW abnormalities NO PRIOR FOR COMPARISON Electronically Signed on 01-18-2019 21:14:43 EDT by Dalia Dennison
[2019-01-18] MEDS: METOCLOPRAMIDE INJ 10MG/2ML VIAL (J2765) IV PRN (22:08)
[2019-01-19] VITALS (7 sets, daily range): BP systolic 98–128; BP diastolic 56–77
[2019-01-19] MEDS: INSULIN IV RATE CHANGE DOCUMENTATION ML/HR XX SCH (00:07)
[2019-01-19 01:09] LABS: BLOOD UREA NITROGEN 3 MG/DL (7-18); CALCIUM LEVEL 8.2 MG/DL (8.5-10.1); CARBON DIOXIDE LEVEL 16 MEQ/L (21-32); CHLORIDE LEVEL 116 MEQ/L (98-107); CREATININE FOR GFR 0.68 MG/DL (0.55-1.30); GLOMERULAR FILTRATION RATE > 60.0 (>60); GLUCOSE, FASTING 216 MG/DL (70-100); MAGNESIUM LEVEL 2.5 MG/DL (1.8-2.4); POTASSIUM SERUM 3.6 MEQ/L (3.5-5.1); SODIUM LEVEL 140 MEQ/L (136-145)
[2019-01-19] MEDS ORDERED: LEVEMIR (INSULIN DETEMIR) 1 UNITS/0.01ML SC ONE (01:30)
[2019-01-19] MEDS ORDERED: GLUCAGON FOR INJ 1 MG VIAL (J1610) SC PRN (01:30)
[2019-01-19] MEDS ORDERED: GLUCOSE 4 GM CHEW TABLET PO PRN (01:30)
[2019-01-19] MEDS ORDERED: DEXTROSE 50% 50 ML SYRINGE IV PRN (01:30)
[2019-01-19] MEDS: POTASSIUM CHLORIDE INJ 40 MEQ in D5W 1,000 ML IV SCH (01:49)
[2019-01-19] MEDS ORDERED: POTASSIUM PHOSPHATE INJ 30 MMOL in D5W 500 ML IV ONE (03:00)
[2019-01-19] MEDS: METOCLOPRAMIDE INJ 10MG/2ML VIAL (J2765) IV PRN (04:54)
[2019-01-19 05:33] LABS: BLOOD UREA NITROGEN 4 MG/DL (7-18); CALCIUM LEVEL 8.4 MG/DL (8.5-10.1); CARBON DIOXIDE LEVEL 17 MEQ/L (21-32); CHLORIDE LEVEL 118 MEQ/L (98-107); CREATININE FOR GFR 0.62 MG/DL (0.55-1.30); GLOMERULAR FILTRATION RATE > 60.0 (>60); GLUCOSE, FASTING 150 MG/DL (70-100); MAGNESIUM LEVEL 2.2 MG/DL (1.8-2.4); PHOSPHORUS LEVEL 2.1 MG/DL (2.5-4.9); POTASSIUM SERUM 3.3 MEQ/L (3.5-5.1); SODIUM LEVEL 143 MEQ/L (136-145)
[2019-01-19 05:34] LABS: HEMATOCRIT 30.4 % (36.0-47.0); HEMOGLOBIN 11.2 g/dl (12.0-15.5); MEAN CORPUSCULAR HEMOGLOBIN 34.3 pg (27.0-33.0); MEAN CORPUSCULAR HGB CONC 36.8 g/dl (32.0-36.5); PLATELET COUNT, AUTOMATED 210 10^3/uL (150-450); RED BLOOD COUNT 3.27 10^6/uL (4.00-5.40); WHITE BLOOD COUNT 10.5 10^3/uL (4.0-10.0)
--- NOTE | 2019-01-19 07:51 | REP ---
PA and lateral chest: There are no comparisons. The lung zimmerman are clear. The cardiac size is normal. The alan, mediastinum, and skeletal structures are unremarkable. Impression: Negative PA and lateral chest. Electronically Signed by Papa Henson MD 01/18/2019 07:45 A
--- NOTE | 2019-01-19 07:53 | CCN ---
DATE: 01/18/2019 Patient was seen and examined this morning during bedside rounds. Patient reports that her weakness has been improving. Her lip and tongue swelling has completely resolved at this time. She denies any chest pain. No shortness of breath. No wheezing. Her nausea has also improved and she denies any abdominal pain. Patient denies any hives. No rashes noted or itchiness. PHYSICAL EXAMINATION: Temperature 97.9, pulse is 103, respirations 18, blood pressure 105/57, oxygen saturation 99% on room air. Input 2.5 liters. Output 1.2 liters. GENERAL: Patient is a thin female, is lying in the stretcher in no acute distress. She is awake and alert and responding to questions appropriately, is not using any accessory muscles for respiration. HEENT: Normocephalic, atraumatic. Pupils are equal and reactive to light bilaterally. Neck is supple. There is no palpable adenopathy or swelling. Mucous membranes are moist. Her tongue does not appear swollen and the previously noted swelling in her lips has resolved. CARDIOVASCULAR: Tachycardic. Regular rate and rhythm. Normal S1, S2. No murmurs appreciated. PULMONARY: Clear to auscultation bilaterally. No wheezing, rales or rhonchi. ABDOMEN: Soft, nondistended. Mild tenderness. LOWER EXTREMITIES: There is no lower extremity edema noted bilaterally. LABORATORY DATA: WBC 15.7, hemoglobin is 4.7, platelets are 264. Chemistry: Sodium was 151, potassium is 2.8 this morning, chloride is 128, 10, bicarbonate 9, BUN 5, creatinine 0.74, glucose is 145. Serum osmolarity 308. Phosphorus 0.2, magnesium is 2.1. Ketones this morning positive at 37.62. MICROBIOLOGY: Blood culture results are pending. ASSESSMENT AND PLAN: Ms. Dunaway is a 23-year-old female with history of depression/anxiety who presented with weakness, shortness of breath, nausea and vomiting. Patient was in diabetic ketoacidosis (DKA) likely due to a history of untreated type 1 diabetes. Her shortness of breath was secondary to her significant acidosis. Patient also had developed angioedema in her lips and tongue after being given Zofran in the emergency department (ED). This improved with Benadryl and Solu-Medrol. She did not have any evidence of anaphylaxis and had no evidence of airway compromise. 1. Diabetic ketoacidosis (DKA). Likely in the setting of untreated type 1 diabetes. - Patient's electrolyte this morning continues to show significant hypokalemia. Her fingerstick glucoses had also trended down to 130 and she was still on half normal saline (NS). Patient also was noted to be more hypernatremic and hyperchloremic, which is likely also contributing to be a non-anion gap metabolic acidosis in addition to her previous anion gap acidosis from her ketoacidosis. She does continue to have ketones still on her labs this morning. - Therefore, will hold her insulin drip until her potassium has been repleted to above 3.3. Will restart her insulin drip and will discontinue her half normal saline fluids and place her instead on D5W with 20 mEq of potassium chloride, and start initially at a rate of 150 mL/hour and adjust as needed to maintain a fingerstick glucoses around 150-200. She will need to continue with her insulin drip until her anion gap has remained closed on two subsequent chemistries, as well as having a bicarbonate above 15. - Patient also had significant hypophosphatemia. Will give her intravenous (IV) phosphorus repletion with potassium phosphate and will also give her additional potassium chloride repletion for her hypokalemia. Her magnesium level is acceptable above 2 currently. - Will continue to follow her serum chemistries every 4 hours. With the D5W, suspect her hypernatremia and hyperchloremia will improve. Will also encourage the patient to drink water. - Patient's arterial blood gas (ABG) after bicarbonate supplementation shows a pH above 6.9 and she does not need further bicarbonate supplementation currently. - When patient is ready to be transitioned to subcutaneous insulin after her anion gap has remained closed on two subsequent chemistries and she is able to tolerate oral intake, she will need overlap of the insulin drip after receiving the long-acting subcutaneous insulin for two hours before stopping the drip. 2. Angioedema. Likely a allergic reaction secondary to Zofran. She did not have any evidence of anaphylaxis and did not have any evidence of airway compromise. - Patient is status post Benadryl and Solu-Medrol 60 mg IV. - Continue with antihistamine with cetirizine 10 mg twice a day for another day and continue with prednisone 40 mg daily for another two days with before discontinuing. - Continue to monitor patient for signs of recurrent angioedema or anaphylaxis. If there is evidence of anaphylaxis, would give her epinephrine intramuscular (IM). 3. Leukocytosis. Likely reactionary. She does not have any localizing symptoms to suggest infection. Her urinalysis (UA) was negative. Her chest x-ray did not show any focal opacities and her blood cultures are still pending. She was started on broad-spectrum antibiotics; however, would consider discontinuing antibiotics and continue to monitor off of antibiotics. Will follow up the results of her procalcitonin, which was ordered to help with de-escalation in discontinuation of her antibiotics. Deep venous thrombosis (DVT) prophylaxis. Gastrointestinal (GI) prophylaxis. FULL CODE. Total critical care time spent, not including procedures, approximately 45 minutes. Please do not hesitate to call if any further questions or concerns. MTDD
[2019-01-19] MEDS: HumaLOG INSULIN (NovoLOG) PER UNIT SC SCH ×4 (08:04→21:08)
[2019-01-19] MEDS: predniSONE 20 MG TAB PO SCH (08:04)
[2019-01-19] MEDS: CETIRIZINE (ZyrTEC) 10 MG TAB PO SCH ×2 (08:04→20:32)
[2019-01-19] MEDS ORDERED: POTASSIUM CHLORIDE 10 MEQ SR TABLET PO ONE (09:00)
[2019-01-19 09:32] LABS: BLOOD UREA NITROGEN 4 MG/DL (7-18); CALCIUM LEVEL 8.2 MG/DL (8.5-10.1); CARBON DIOXIDE LEVEL 17 MEQ/L (21-32); CHLORIDE LEVEL 114 MEQ/L (98-107); CREATININE FOR GFR 0.63 MG/DL (0.55-1.30); GLOMERULAR FILTRATION RATE > 60.0 (>60); GLUCOSE, FASTING 239 MG/DL (70-100); POTASSIUM SERUM 3.2 MEQ/L (3.5-5.1); SODIUM LEVEL 140 MEQ/L (136-145)
[2019-01-19] MEDS ORDERED: POTASSIUM CHLORIDE 10% LIQ 20 MEQ/15 ML UDC PO ONE (11:00)
[2019-01-19 13:44] LABS: BLOOD UREA NITROGEN 6 MG/DL (7-18); CALCIUM LEVEL 8.8 MG/DL (8.5-10.1); CARBON DIOXIDE LEVEL 17 MEQ/L (21-32); CHLORIDE LEVEL 112 MEQ/L (98-107); CREATININE FOR GFR 0.69 MG/DL (0.55-1.30); GLOMERULAR FILTRATION RATE > 60.0 (>60); GLUCOSE, FASTING 304 MG/DL (70-100); MAGNESIUM LEVEL 2.1 MG/DL (1.8-2.4); POTASSIUM SERUM 3.4 MEQ/L (3.5-5.1); SODIUM LEVEL 139 MEQ/L (136-145)
--- NOTE | 2019-01-19 14:53 | IPNPDOC ---
Date Seen The patient was seen on 01/19/19. Progress Note SUBJECTIVE: off of insulinv iv gtt s/p levemir 18units at 3am,, closed her anion gap and advanced on her diet which she tolerated well. pt to be taught how to do fingersticks and self-administer sq insulin. possible dc plans in am if stable overnight. Pt c/o fatigue, generalized weakness, but denies abdominal pain, vomiting. pt had nausea given zofran and subsequently developed angioedema s/p prednisone and benadryl. pt requesting liquids and feeling very thirsty. At home, she admits to weight loss, but denied polyuria polydipsia. OBJECTIVE: Physical Examination General Exam: Positive: Alert, Cooperative, Other (. Mild swelling of left lower lip and left side of tongue noted) Eye Exam: Positive: PERRLA, Conjunctiva & lids normal ENT Exam: Positive: Atraumatic, Mucous membr. moist/pink Neck Exam: Negative: Supple, JVD, thyromegaly, +2 carotid pulse wo bruit, Lymphadenopathy, Other Chest Exam: Positive: Clear to auscultation, Normal air movement Heart Exam: Positive: Tachycardic, Normal S1, Normal S2 Telemetry: Positive: Tachycardia Abdomen Exam: Positive: Normal bowel sounds, Soft, Tenderness Extremity Exam: Positive: Normal pulses Skin Exam: Positive: Other skin issue (dry, and increased local temperature) Neuro Exam: Positive: Normal Speech, Strength at 5/5 X4 ext, Sensation Intact Psych Exam: Positive: Oriented x 3 ADMISSION LABORATORY DATA: Laboratory Data Labs 24H Laboratory Tests 2 01/17/19 16:29: Bedside Glucose (Misc Panel) 582*H 01/17/19 16:54: Estimated Mean Plasma Glucose 306H, Hemoglobin A1c 12.3 01/17/19 16:55: Immature Granulocyte % (Auto) 2.6, White Blood Count 18.0H, Red Blood Count 4.33, Hemoglobin 14.8, Hematocrit 42.8, Mean Corpuscular Volume 98.8H, Mean Corpuscular Hemoglobin 34.2H, Mean Corpuscular Hemoglobin Concent 34.6, Red Cell Distribution Width 14.2, Platelet Count 353, Neutrophils (%) (Auto) 79.4H, Lymphocytes (%) (Auto) 7.5L, Monocytes (%) (Auto) 9.7H, Eosinophils (%) (Auto) 0.0, Basophils (%) (Auto) 0.8, Neutrophils # (Auto) 14.3H, Lymphocytes # (Auto) 1.4L, Monocytes # (Auto) 1.8H, Eosinophils # (Auto) 0.0, Basophils # (Auto) 0.2, Nucleated Red Blood Cells % (auto) 0.0, Blood Gas Bicarbonate Standard 5.5, Venous Blood pH 6.839L, Venous Blood Partial Pressure CO2 21.6L, Venous Blood Partial Pressure O2 47.8, Venous Blood Total Carbon Dioxide 4.3L, Venous Blood HCO3 3.6L, Venous Blood Oxygen Saturation 82.3H, Venous Blood Base Excess - 29.7L, Magnesium Level 2.3, Aspartate Amino Transf (AST/SGOT) 7, Alanine A minotransferase (ALT/SGPT) 16, Alkaline Phosphatase 191H, Total Bilirubin 0.4, Direct Bilirubin 0.1, Total Protein 7.8, Albumin 4.0, Albumin/Globulin Ratio 1.05 01/17/19 16:57: Urine Color STRAW, Urine Appearance CLEAR, Urine pH 5.0, Urine Specific [place] 1.022, Urine Protein 1+H, Urine Glucose (UA) 3+H, Urine Ketones 2+H, Urine Blood 2+H, Urine Nitrite NEGATIVE, Urine Bilirubin NEGATIVE, Urine Urobilinogen 0.2, Urine Leukocyte Esterase NEGATIVE, Urine WBC (Auto) 1, Urine RBC (Auto) 1, Urine Hyaline Casts (Auto) 0, Urine Bacteria (Auto) NEGATIVE, Urine Squamous Epithelial Cells 0, Urine Mucus (Auto) SMALL, Urine Sperm (Auto) 01/17/19 17:14: POC Glucose (Misc Panel) 642*H, POC Sodium (Misc Panel) 137, POC Potassium (Misc Panel) 3.1L, POC Chloride (Misc Panel) 109, POC Total CO2 (Misc Panel) 6.0L, POC Blood Urea Nitrogen (Misc Panel 4L, POC Ionized Calcium (Misc Panel) 5.0, POC Creatinine (Misc Panel) 0.5L, POC Hematocrit (Misc Panel) 45.0 01/17/19 18:42: Blood Gas Bicarbonate Standard 6.2, Venous Blood pH 6.931L, Venous Blood Partial Pressure CO2 16.1L, Venous Blood Partial Pressure O2 141.5H, Venous Blood Total Carbon Dioxide 3.8L, Venous Blood HCO3 3.3L, Venous Blood Oxygen Saturation 98.7H, Venous Blood Base Excess -27.8L, Anion Gap 23H, Glomerular Filtration Rate > 60.0, Blood Urea Nitrogen 5L, Creatinine 0.82, Sodium Level 144, Potassium Level 3.0L, Chloride Level 116H, Carbon Dioxide Level 5L, Calcium Level 6.9L CBC/BMP Laboratory Tests 01/17/19 16:55 Red Blood Count 4.33, Mean Corpuscular Volume 98.8 H, Mean Corpuscular Hemoglobin 34.2 H, Mean Corpuscular Hemoglobin Concent 34.6, Red Cell Distribution Width 14.2, Neutrophils (%) (Auto) 79.4 H, Lymphocytes (%) (Auto) 7.5 L, Monocytes (%) (Auto) 9.7 H, Eosinophils (%) (Auto) 0.0, Basophils (%) (Auto) 0.8, Neutrophils # (Auto) 14.3 H, Lymphocytes # (Auto) 1.4 L, Monocytes # (Auto) 1.8 H, Eosinophils # (Auto) 0.0, Basophils # (Auto) 0.2 01/17/19 18:42 Calcium Level 6.9 LABORATORY DATA, IMAGING STUDIES, MICROBIOLOGY: PLS SEE BELOW ASSESSMENT AND PLAN: 23 years old white female with past medical history of no medical problems and no past surgical history presented to the ED with a chief complaints of sh ortness of breath. Patient was started. Her symptoms of lethargy, tiredness, weakness, not feeling good since yesterday, which was followed by nausea and vomiting in the evening and subsequently increasing shortness of breath since today and decided to come to ER for further care. In ED, patient did receive a dose of Zofran Zofran and afterward she developed swelling of her tongue that and let which resolved with Benadryl. Patient does not give me any history of any other symptoms such as short adjust his cough, fever, dysuriu. On further interrogation, it was found that patient has been losing weight since last 2 for 5 months and also had increasing thirst and increased micturition since last few months. Patient was admitted with the diagnosis of DKA to ICU. Diabetic Ketoacidosis admitted to ICU until anion gap has closed on insulin iv gtt, ivfluids, q1hrly fingersticks, serial mg, phos, potassium monitoring, empiric levaquin. will need outpt referral to scientific software engineer by pcp after hospital discharge. off of insulinv iv gtt s/p levemir 18units at 3am,, closed her anion gap and adv anced on her diet which she tolerated well. pt to be taught how to do fingersticks and self-administer sq insulin. possible dc plans in am if stable overnight. New onset DM1 admitted to ICU until anion gap has closed on insulin iv gtt, ivfluids, q1hrly fingersticks, serial mg, phos, potassium monitoring, empiric levaquin. will need outpt referral to scientific software engineer by pcp after hospital discharge. off of insulinv iv gtt s/p levemir 18units at 3am,, closed her anion gap and advanced on her diet which she tolerated well. pt to be taught how to do fingersticks and self-administer sq insulin. possible dc plans in am if stable overnight. SIRS on ivfluids , empiric levaquin. urine neg. cxr neg. Acute Metabolic Acidosis s/p bicarb resolving with treatment of DKA serial mp Hypokalemia supplemented Hypomagnesemia supplemented Hypophosphatemia supplemented Reaction to Ondasetron on prednisone,benadryl Plan / VTE VTE Prophylaxis Ordered?: Yes VS, I&O, 24H, Fishbone Vital Signs/I&O Vital Signs Date Time Temp Pulse Resp B/P (MAP) Pulse Ox O2 Delivery O2 Flow Rate FiO2 01/19/19 11:35 98.0 91 18 108/60 (76) 98 01/17/19 20:07 Room Air I&O- Last 24 Hours up to 6 AM 01/19/19 06:00 Intake Total 5124 ml Output Total 3350 ml Balance 1774 ml Laboratory Data 24H LABS Laboratory Tests 2 01/18/19 15:04: Bedside Glucose (Misc Panel) 309H 01/18/19 15:59: Bedside Glucose (Misc Panel) 306H 01/18/19 17:06: Bedside Glucose (Misc Panel) 262H 01/18/19 17:17: Anion Gap 19H, Glomerular Filtration Rate > 60.0, Blood Urea Nitrogen 4L, Creatinine 0.83, Sodium Level 142, Potassium Level 3.7#, Chloride Level 118H, Carbon Dioxide Level 5L, Calcium Level 8.0L, Phosphorus Level 0.6L, Magnesium Level 2.2 01/18/19 18:04: Bedside Glucose (Misc Panel) 278H 01/18/19 18:19: Blood Gas Bicarbonate Standard 10.8, Venous Blood pH 7.227L, Venous Blood Partial Pressure CO2 16.7L, Venous Blood Partial Pressure O2 205.2H, Venous Blood Total Carbon Dioxide 7.3L, Venous Blood HCO3 6.8L, Venous Blood Oxygen Saturation 99.4H, Venous Blood Base Excess -18.5L 01/18/19 19:03: Bedside Glucose (Misc Panel) 243H 01/18/19 20:07: Bedside Glucose (Misc Panel) 205H 01/18/19 20:44: Bedside Glucose (Misc Panel) 187H, Anion Gap 10, Glomerular Filtration Rate > 60.0, Blood Urea Nitrogen 4L, Creatinine 0.74, Sodium Level 141, Potassium Level 3.2L, Chloride Level 118H, Carbon Dioxide Level 13L, Calcium Level 8.6, Phosphorus Level 0.3#L, Magnesium Level 1.9 01/18/19 22:13: Bedside Glucose (Misc Panel) 184H 01/18/19 23:20: Bedside Glucose (Misc Panel) 200H 01/19/19 00:04: Bedside Glucose (Misc Panel) 199H 01/19/19 00:41: Anion Gap 8, Glomerular Filtration Rate > 60.0, Blood Urea Nitrogen 3L, Creatinine 0.68, Sodium Level 140, Potassium Level 3.6, Chloride Level 116H, Carbon Dioxide Level 16L, Calcium Level 8.2L, Phosphorus Level 1.0#L, Magnesium Level 2.5H 01/19/19 01:12: Bedside Glucose (Misc Panel) 221H 01/19/19 04:51: Anion Gap 8, Glomerular Filtration Rate > 60.0, Blood Urea Nitrogen 4L, Creatinine 0.62, Sodium Level 143, Potassium Level 3.3L, Chloride Level 118H, Carbon Dioxide Level 17L, Calcium Level 8.4L, Phosphorus Level 2.1#L, Magnesium Level 2.2, Nucleated Red Blood Cells % (auto) 0.0 01/19/19 07:34: Bedside Glucose (Misc Panel) 134H 01/19/19 08:47: Anion Gap 9, Glomerular Filtration Rate > 60.0, Blood Urea Nitrogen 4L, Creatinine 0.63, Sodium Level 140, Potassium Level 3.2L, Chloride Level 114H, Carbon Dioxide Level 17L, Calcium Level 8.2L, Magnesium Level 2.0 01/19/19 11:40: Bedside Glucose (Misc Panel) 349H 01/19/19 12:51: Anion Gap 10, Glomerular Filtration Rate > 60.0, Blood Urea Nitrogen 6L, Creatinine 0.69, Sodium Level 139, Potassium Level 3.4L, Chloride Level 112H, Carbon Dioxide Level 17L, Calcium Level 8.8, Magnesium Level 2.1 CBC/BMP Laboratory Tests 01/18/19 17:17 Calcium Level 8.0 L 01/18/19 20:44 Calcium Level 8.6 01/19/19 00:41 Calcium Level 8.2 L 01/19/19 04:51 Calcium Level 8.4 L, Red Blood Count 3.27 L, Mean Corpuscular Volume 93.0, Mean Corpuscular Hemoglobin 34.3 H, Mean Corpuscular Hemoglobin Concent 36.8 H, Red Cell Distribution Width 14.1 01/19/19 08:47 Calcium Level 8.2 L 01/19/19 12:51 Calcium Level 8.8 Microbiology Microbiology 01/17/19 Blood Culture - Preliminary, Resulted No growth after 24 hours . All specim... JV AL MD Jan 19, 2019 14:53
[2019-01-19 17:56] LABS: BLOOD UREA NITROGEN 9 MG/DL (7-18); CALCIUM LEVEL 8.3 MG/DL (8.5-10.1); CARBON DIOXIDE LEVEL 17 MEQ/L (21-32); CHLORIDE LEVEL 108 MEQ/L (98-107); CREATININE FOR GFR 0.63 MG/DL (0.55-1.30); GLOMERULAR FILTRATION RATE > 60.0 (>60); GLUCOSE, FASTING 399 MG/DL (70-100); MAGNESIUM LEVEL 2.1 MG/DL (1.8-2.4); POTASSIUM SERUM 3.6 MEQ/L (3.5-5.1); SODIUM LEVEL 138 MEQ/L (136-145)
[2019-01-19] MEDS: PANTOPRAZOLE 40MG INJ (PROTONIX) (C9113) IV SCH (20:32)
[2019-01-19] MEDS: LEVEMIR (INSULIN DETEMIR) 1 UNITS/0.01ML SC SCH (21:07)
[2019-01-19] MEDS: LevoFLOXacin IV 750 MG in APPROPRIATE DILUENT 1 EA IV SCH (21:57)
[2019-01-20] VITALS: BP 119/69
[2019-01-20 07:22] LABS: BLOOD UREA NITROGEN 7 MG/DL (7-18); CALCIUM LEVEL 8.5 MG/DL (8.5-10.1); CARBON DIOXIDE LEVEL 27 MEQ/L (21-32); CHLORIDE LEVEL 109 MEQ/L (98-107); CREATININE FOR GFR 0.47 MG/DL (0.55-1.30); GLOMERULAR FILTRATION RATE > 60.0 (>60); GLUCOSE, FASTING 224 MG/DL (70-100); MAGNESIUM LEVEL 2.2 MG/DL (1.8-2.4); POTASSIUM SERUM 2.8 MEQ/L (3.5-5.1); SODIUM LEVEL 145 MEQ/L (136-145)
[2019-01-20] MEDS: HumaLOG INSULIN (NovoLOG) PER UNIT SC SCH ×4 (07:39→21:15)
[2019-01-20 08:00] VITALS: BP 130/72
[2019-01-20] MEDS: POTASSIUM CHLORIDE 10 MEQ SR TABLET PO SCH ×2 (08:33→11:23)
[2019-01-20] MEDS ORDERED: KCL 40MEQ in NS 1000ML 1,000 ML IV SCH (09:00)
[2019-01-20] MEDS: predniSONE 20 MG TAB PO SCH (09:13)
[2019-01-20] MEDS: CETIRIZINE (ZyrTEC) 10 MG TAB PO SCH ×2 (09:13→21:14)
[2019-01-20] MEDS: LEVEMIR (INSULIN DETEMIR) 1 UNITS/0.01ML SC SCH ×2 (09:16→21:14)
[2019-01-20 16:00] VITALS: BP 111/72
--- NOTE | 2019-01-20 17:42 | IPNPDOC ---
Text Note Date of Service The patient was seen on 01/20/19. NOTE Subjective: Patient had no overnight events. She endorses good appetite. No fevers, chills, chest pain, palpitations, cough, SOB, abd pain, n/v/d, focal weakness or swelling. She endorses she feels comfortable injecting insulin, asks when she can go home. Objective GEN: Thin female, NAD, resting in bed HEENT: MMM, EOMI, no pallor, no tongue swelling, no airway compromise Cardio: S1/s2 present, RRR Lungs: CTA b/l, good air entry, no wheezing Abd: soft, nt, nd, bs present, no rebound or guarding present. Neuro: A&Ox3, no focal neuro deficits MSK: strength 5/5, gait not assessed Psych: Normal mood and affect 23 y/o F with no PMH presents with SOB, lethargy, weakness, unintentional weight loss, increased PO intake, followed by n/v. Received Zofran followed by tongue swelling which has resolved with Benadryl/prednisone. Patient found to be in DKA and admitted to ICU, now on medical floors. New onset DKA, DM type 1, poorly controlled -anion gap remains closed -finger sticks q4 hours. -Increase Detemir to 15 units BID, sliding scale insulin -will d/c prednisone today and monitor. -reglan prn SIRS on admission -infectious work up negative, d/c Levofloxacin s/p 3 doses. Monitor for infectious signs Hypokalemia -likely secondary to decreased total body stores from uncontrolled DM now worsening with insulin -IV 40 meq KCl and 40 meq KCl x2 today. Monitor repeat K in AM Hypomagnesemia supplemented Hypophosphatemia supplemented Reaction to Ondasetron -d/c prednisone today, no swelling. Benadryl PRN. Dispo: can likely be d/c tomorrow if electrolytes corrected and glucose better controlled with endocrine outpatient follow up. Vital Signs Date Time Temp Pulse Resp B/P (MAP) Pulse Ox O2 Delivery O2 Flow Rate FiO2 01/20/19 16:00 98.3 97 19 111/72 (85) 98 01/20/19 08:00 98.3 79 19 130/72 (91) 99 01/20/19 00:00 98.3 82 20 119/69 (86) 99 01/19/19 20:00 98.4 89 18 116/67 (83) 97 Intake & Output 01/20/19 06:00 Intake Total 2476 ml Output Total 2400 ml Balance 76 ml Laboratory Tests 01/19/19 20:45: Bedside Glucose (Misc Panel) 357H 01/19/19 22:48: Bedside Glucose (Misc Panel) 237H 01/20/19 06:26: Blood Urea Nitrogen 7, Creatinine 0.47L, Sodium Level 145#, Potassium Level 2.8#*L, Chloride Level 109H, Carbon Dioxide Level 27, Calcium Level 8.5, Anion Gap 9, Glomerular Filtration Rate > 60.0, Fasting Glucose 224H, Magnesium Level 2.2 01/20/19 12:59: Bedside Glucose (Misc Panel) 351H VS,Fishbone, I+O VS, Fishbone, I+O Laboratory Tests 01/20/19 06:26 Calcium Level 8.5 Vital Signs Date Time Temp Pulse Resp B/P (MAP) Pulse Ox O2 Delivery O2 Flow Rate FiO2 01/20/19 16:00 98.3 97 19 111/72 (85) 98 01/17/19 20:07 Room Air I&O- Last 24 Hours up to 6 AM 01/20/19 06:00 Intake Total 2476 ml Output Total 2400 ml Balance 76 ml TAMMY FREEMAN MD Jan 20, 2019 17:42
[2019-01-20 20:00] VITALS: BP 116/66
[2019-01-20] MEDS: PANTOPRAZOLE 40MG INJ (PROTONIX) (C9113) IV SCH (21:14)
[2019-01-21] VITALS: BP 111/67
[2019-01-21 06:46] LABS: HEMATOCRIT 27.4 % (36.0-47.0); MEAN CORPUSCULAR HEMOGLOBIN 33.9 pg (27.0-33.0); MEAN CORPUSCULAR HGB CONC 36.5 g/dl (32.0-36.5); MEAN CORPUSCULAR VOLUME 92.9 fl (80.0-96.0); PLATELET COUNT, AUTOMATED 186 10^3/uL (150-450); RED BLOOD COUNT 2.95 10^6/uL (4.00-5.40); WHITE BLOOD COUNT 7.1 10^3/uL (4.0-10.0)
[2019-01-21 07:09] LABS: BLOOD UREA NITROGEN 11 MG/DL (7-18); CALCIUM LEVEL 8.6 MG/DL (8.5-10.1); CARBON DIOXIDE LEVEL 32 MEQ/L (21-32); CHLORIDE LEVEL 107 MEQ/L (98-107); CREATININE FOR GFR 0.42 MG/DL (0.55-1.30); GLOMERULAR FILTRATION RATE > 60.0 (>60); GLUCOSE, FASTING 130 MG/DL (70-100); MAGNESIUM LEVEL 2.3 MG/DL (1.8-2.4); PHOSPHORUS LEVEL 4.7 MG/DL (2.5-4.9); POTASSIUM SERUM 3.1 MEQ/L (3.5-5.1); SODIUM LEVEL 146 MEQ/L (136-145)
[2019-01-21] MEDS: HumaLOG INSULIN (NovoLOG) PER UNIT SC SCH ×2 (08:19→12:35)
[2019-01-21] MEDS ORDERED: POTASSIUM CHLORIDE 10 MEQ SR TABLET PO ONE (08:30)
[2019-01-21] MEDS: CETIRIZINE (ZyrTEC) 10 MG TAB PO SCH (08:36)
[2019-01-21] MEDS: LEVEMIR (INSULIN DETEMIR) 1 UNITS/0.01ML SC SCH (08:39)
[2019-01-21 09:00] VITALS: BP 106/69
[2019-01-21] MEDS ORDERED: KCL 40MEQ in NS 1000ML 1,000 ML IV SCH (09:00)
[2019-01-21 13:00] VITALS: BP 108/63
[2019-01-21] MEDS ORDERED: INSUHUMDS SC (14:47)
[2019-01-21] MEDS ORDERED: INSUDET SC (14:47)
[2019-01-21] MEDS ORDERED: NOVOINJ3 SC (15:36)
[2019-01-21] MEDS ORDERED: LEVE1INJ5 SC (15:36)
--- NOTE | 2019-02-11 23:14 | DS.PDOC ---
Discharge Summary General Date of Admission Jan 17, 2019 at 19:46 Date of Discharge 01/22/19 Discharge Summary PROCEDURES PERFORMED DURING STAY: [None]. ADMITTING DIAGNOSES: 1. [DKA]. DISCHARGE DIAGNOSES: 1. [DKA]. COMPLICATIONS/CHIEF COMPLAINT: Dka, Hypokalemia. HISTORY OF PRESENT ILLNESS: [23 years old white female with past medical history of no medical problems and no past surgical history presented to the ED with a chief complaints of shortness of breath. Patient was started. Her symptoms of lethargy, tiredness, weakness, not feeling good since yesterday, which was followed by nausea and vomiting in the evening and subsequently increasing shortness of breath since today and decided to come to ER for further care. In ED, patient did receive a dose of Zofran Zofran and afterward she developed swelling of her tongue that and let which resolved with Benadryl. Patient does not give me any history of any other symptoms such as short adjust his cough, fever, dysuria. On further interrogation, it was found that patient has been losing weight since last 2 for 5 months and also had increasing thirst and increased micturition since last few months. Patient is being admitted with the diagnosis of DKA to ICU.]. HOSPITAL COURSE: [Patient was admitted to ICU and treated for DKA . She is a n ewly diagnosed likely type diabetic. SHe received diabetic education from myself and her nurse. All meds were prescribe for her on discharge. ]. DISCHARGE MEDICATIONS: Please see below. ALLERGIES: Please see below. LABORATORY DATA: Please see below. IMAGING: [ NAME: LEONARDO MCLAUGHLIN DATE OF : 1995 AGE: 23 SEX: F REPORT #: [id number] ROOM: ICU TECHNOLOGIST: LINDA DOCTOR: FRAN [employer] SPECIALIST Ordered for Date&Time: 01/17/19 1630 cc: [~ rep ct ivnm] Service Date&Time: EXAMINATION REQUESTED: Chest, 2 view PA, Lat REASON FOR PATIENT VISIT: DKA, HYPOKALEMIA REASON FOR EXAM/COMMENT: SOB, new onset diabetes PA and lateral chest: There are no comparisons. The lung zimmerman are clear. The cardiac size is normal. The alan, mediastinum, and skeletal structures are unremarkable. Impression: Negative PA and lateral chest. Electronically Signed by Papa Henson MD 01/18/2019 07:45 A ] PROGNOSIS: [Good] ACTIVITY: [As tolerated]. DIET: [diabetic diet] DISCHARGE PLAN: [f/u with pmd and medication administration professional in 1-2 weeks ] DISPOSITION: 01 Home, Self-Care. DISCHARGE CONDITION: [Stable]. TIME SPENT ON DISCHARGE: Greater than [15] minutes. Vital Signs/I&Os Vital Signs Date Time Temp Pulse Resp B/P (MAP) Pulse Ox O2 Delivery O2 Flow Rate FiO2 01/21/19 13:00 97.9 90 18 108/63 (78) 100 01/17/19 20:07 Room Air I&O- Last 24 Hours up to 6 AM 01/21/19 06:00 Intake Total 2720 ml Output Total 1100 ml Balance 1620 ml Laboratory Data Labs 24H Laboratory Tests 2 01/21/19 06:23: Nucleated Red Blood Cells % (auto) 0.0, Anion Gap 7L, Glomerular Filtration Rate > 60.0, Blood Urea Nitrogen 11#, Creatinine 0.42L, Sodium Level 146H, Potassium Level 3.1L, Chloride Level 107, Carbon Dioxide Level 32, Calcium Level 8.6, Phosphorus Level 4.7#, Magnesium Level 2.3 01/21/19 12:03: Bedside Glucose (Misc Panel) 226H CBC/BMP Laboratory Tests 01/21/19 06:23 Red Blood Count 2.95 L, Mean Corpuscular Volume 92.9, Mean Corpuscular Hemoglobin 33.9 H, Mean Corpuscular Hemoglobin Concent 36.5, Red Cell Distribution Width 13.4, Calcium Level 8.6 FSBS Laboratory Tests Test 01/21/19 12:03 Range/Units Bedside Glucose (Misc Panel) 226 70-105 MG/DL Microbiology Microbiology 01/17/19 Blood Culture - Preliminary, Resulted No Growth after 72 hours. All specime... Discharge Medications Scheduled Insulin Aspart (Novolog Flexpen) 100 Unit/1 Ml Insuln.pen, 6 UNITS SC ACHS Insulin Detemir (Levemir) 100 Unit/1 Ml Vial, 15 UNITS SC BID Insulin Detemir (Levemir Flextouch) 100 Unit/1 Ml Insuln.pen, 100 UNIT SC BID Insulin Human Lispro (Humalog) 100 Unit/1 Ml Vial, 6 UNITS SC ACHS Norgestimate-Ethinyl Estradiol (Tri-Linyah Tablet) 1 Each Tablet, 1 TAB PO DAILY, (Reported) Sertraline Hcl (Sertraline HCl) 50 Mg Tablet, 50 MG PO DAILY, (Reported) Allergies Coded Allergies: ondansetron (Verified Allergy, Severe, Tongue and lip swelling, 01/18/19) CHINO MULLINS MD Jan 21, 2019 21:01
== END 2019-01-21 16:50 | disposition home or self-care (01) | DRG 639 ==
LOC: M ED 16:14 → M ED INP 19:46 → M ICU 21:18 → M PED 01-19 11:21
PROVIDERS: ADMIT Internal Medicine; ATTEND Internal Medicine
DX: E10.10 Type 1 diabetes mellitus with ketoacidosis without coma (principal); E87.6 Hypokalemia; F32.9 Major depressive disorder, single episode, unspecified; J30.81 Allergic rhinitis due to animal (cat) (dog) hair and dander; E10.65 Type 1 diabetes mellitus with hyperglycemia; T78.3XXA Angioneurotic edema, initial encounter; T45.0X5A Adverse effect of antiallergic and antiemetic drugs, initial encounter; E83.39 Other disorders of phosphorus metabolism; E83.42 Hypomagnesemia; Z79.899 Other long term (current) drug therapy; Z88.8 Allergy status to other drugs, medicaments and biological substances; Z83.3 Family history of diabetes mellitus

== ENCOUNTER → 2019-02-05 | Outpatient (CLI) | payer OTHER ==
[~2019-02-05] MED LIST: INSUDET SC; INSUHUMDS SC; LEVE1INJ5 SC; NOVOINJ3 SC; SERT-141 PO; TRI-TAB16 PO
[2019-02-05 20:30] LABS: ALBUMIN 3.4 GM/DL (3.2-5.2); ALT/SGPT 19 U/L (12-78); BILIRUBIN,TOTAL 0.2 MG/DL (0.2-1.0); BLOOD UREA NITROGEN 14 MG/DL (7-18); CALCIUM LEVEL 8.4 MG/DL (8.5-10.1); CARBON DIOXIDE LEVEL 27 MEQ/L (21-32); CHLORIDE LEVEL 105 MEQ/L (98-107); CREATININE FOR GFR 0.72 MG/DL (0.55-1.30); GLOMERULAR FILTRATION RATE > 60.0 (>60); GLUCOSE, FASTING 241 MG/DL (70-100); POTASSIUM SERUM 4.2 MEQ/L (3.5-5.1); SODIUM LEVEL 138 MEQ/L (136-145); TOTAL PROTEIN 6.4 GM/DL (6.4-8.2)
[2019-02-05 20:51] LABS: HEMOGLOBIN A1c 10.2 %
[2019-02-05 20:54] LABS: CREATININE, URINE 98.4 MG/DL; MALB URINE SIEMENS 5.9 MG/L; MAU/CREAT RATIO 5.9 MCG/MG (0.0-30.0)
== END ==
LOC: M WUC 16:53
PROVIDERS: ATTEND Physician Assistant
DX: E10.65 Type 1 diabetes mellitus with hyperglycemia (principal); Z79.4 Long term (current) use of insulin

== ENCOUNTER → 2020-02-03 | Outpatient (REF) | payer OTHER ==
[2020-03-30 16:30] LABS: ALBUMIN 3.6 GM/DL (3.2-5.2); ALT/SGPT 16 U/L (12-78); BILIRUBIN,TOTAL 0.4 MG/DL (0.2-1.0); BLOOD UREA NITROGEN 7 MG/DL (7-18); CALCIUM LEVEL 8.8 MG/DL (8.5-10.1); CARBON DIOXIDE LEVEL 28 MEQ/L (21-32); CHLORIDE LEVEL 108 MEQ/L (98-107); CREATININE FOR GFR 0.73 MG/DL (0.55-1.30); GLOMERULAR FILTRATION RATE > 60.0 (>60); GLUCOSE, FASTING 165 MG/DL (70-100); HEMOGLOBIN A1c 7.3 %; MALB URINE SIEMENS 8.7 MG/L; POTASSIUM SERUM 4.1 MEQ/L (3.5-5.1); SODIUM LEVEL 140 MEQ/L (136-145); TOTAL PROTEIN 6.8 GM/DL (6.4-8.2)
== END ==
LOC: M LABWUC 07:22
PROVIDERS: ATTEND Physician Assistant
DX: E10.65 Type 1 diabetes mellitus with hyperglycemia (principal)

== ENCOUNTER → 2021-06-29 | Outpatient (CLI) | payer OTHER | LOC: M LABSMTC 13:41 | PROVIDERS: ATTEND Pediatrics | DX: Z11.52 Encounter for screening for COVID-19 (principal); Z20.822 Contact with and (suspected) exposure to COVID-19 | CPT/HCPCS: C9803; U0003 ==

== ENCOUNTER → 2021-10-25 | Outpatient (CLI) | payer OTHER | LOC: M LAB 14:19 | PROVIDERS: ATTEND Physician Assistant | DX: Z01.84 Encounter for antibody response examination (principal) ==

== ENCOUNTER → 2022-07-31 | Outpatient (REF) | payer OTHER | LOC: M LAB REF 08:57 | PROVIDERS: ATTEND Surgery | DX: D22.5 Melanocytic nevi of trunk (principal) ==